=== PATIENT | male | born 1945 | race Caucasian/White ===

== ENCOUNTER → 2019-05-09 | Outpatient (CLI) | payer OTHER ==
--- NOTE | 2019-05-09 14:39 | RAD ---
EXAM DESCRIPTION: Pelvis CLINICAL HISTORY: 73 years Male, PAIN IN RIGHT HIP COMPARISON: None. TECHNIQUE: AP radiograph of the pelvis was performed. FINDINGS: The pelvic ring appears grossly intact on this single AP radiograph. No gross fracture identified. Moderate bilateral hip joint osteoarthritic changes noted.. Bilateral sacroiliac joints also demonstrate mild degenerative changes.. The visualized lumbo-sacral spine demonstrates mild degenerative changes. IMPRESSION: Single AP radiograph of the pelvis demonstrates grossly intact pelvic ring. Moderate bilateral hip joint osteoarthritic changes. Electronically signed by: Jamel Conde MD 05/09/2019 2:38 PM CDT
--- NOTE | 2019-05-09 14:42 | RAD ---
EXAM DESCRIPTION: Knee,Right Complete CLINICAL HISTORY: 73 years Male, PAIN IN RIGHT KNEE TECHNIQUE: 4 views of the right knee were performed. COMPARISON: None available. FINDINGS: The visualized bones appear well mineralized. No acute fracture or dislocation. The medial and lateral compartment joint spaces are well-maintained. No evidence of suprapatellar joint effusion. The soft tissues appear grossly unremarkable. Surgical clips are noted along the posterior aspect of the knee joint. IMPRESSION: 1. No acute fracture or dislocation. Electronically signed by: Jamel Conde MD 05/09/2019 2:40 PM CDT
== END ==
LOC: RAD 13:35
PROVIDERS: ATTEND Orthopaedic Surgery
DX: M16.0 Bilateral primary osteoarthritis of hip (principal); M25.561 Pain in right knee

== ENCOUNTER → 2019-05-16 | Outpatient (CLI) | payer OTHER ==
--- NOTE | 2019-05-16 18:26 | RAD ---
EXAM DESCRIPTION: Shoulder,Right 2 or More Views CLINICAL HISTORY: 73 years Male, PAIN IN RIGHT SHOULDER COMPARISON: None. Findings: Number of images: Four Narrowing of the subacromial space. Moderate glenohumeral osteoarthritis. Mild acromioclavicular osteoarthritis. High riding humeral head. Soft tissues are unremarkable. Visualized chest is clear. No acute fracture or dislocation. 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 No acute fracture. Electronically signed by: Tanvir Jack MD 05/16/2019 6:24 PM CDT
--- NOTE | 2019-05-16 18:27 | RAD ---
EXAM DESCRIPTION: Shoulder,Left 2 or More Views CLINICAL HISTORY: 73 years Male, PAIN IN LEFT SHOULDER COMPARISON: None. Findings: Number of images: Four Severe glenohumeral osteoarthritis. High riding humeral head. Narrowing of the subacromial space. Mild acromioclavicular osteoarthritis. Visualized chest is clear. No acute fracture or dislocation. No focal soft tissue swelling. IMPRESSION: Marked degenerative changes of the left shoulder. No acute osseous abnormality identified. Electronically signed by: Tanvir Jack MD 05/16/2019 6:25 PM CDT
== END ==
LOC: RAD 11:10
PROVIDERS: ATTEND Orthopaedic Surgery
DX: M19.011 Primary osteoarthritis, right shoulder (principal); M19.012 Primary osteoarthritis, left shoulder